=== PATIENT | female | born 1975 | race Caucasian/White ===

== ENCOUNTER → 2016-07-28 | Outpatient (CLI) | payer OTHER ==
[~2016-07-28] MED LIST: ACET-1311 PO; CHOL2000 PO; CLR10 PO; CPR500 PO; CPXI INJ; CYCL10TA6 PO; FING1CAP PO; HYDR-5688 PO; IBUP-1050 PO; IMT100 PO; MULT-506 PO; NAPR1TAB9 PO; OMEP20CA9 PO; OXYC-57 PO; RIZA10TA18 PO; TOPI50TA16 PO; TRAM-10 PO; VENL-273 PO
[2016-07-28 17:50] LABS: BASO % 0.7 %; BASO ABS # 0.08 K/uL (0-0.2); COMPLETE YES; EOS % 1.1 %; IG% 0.3 %; LYMPH % 18.4 %; LYMPH ABS # 2.13 K/uL (1.2-3.4); MEAN CELL VOLUME 90.3 fL (80-100); MEAN CORPUSCULAR HEMOGLOBIN 30.2 pg (25-34); MEAN CORPUSCULAR HGB CONC 33.4 g/dl (32-36); MONO % 12.1 %; NEUT % 67.4 %; PLATELET COUNT 336 K/uL (130-400); RED BLOOD COUNT 4.54 M/uL (4.2-5.4); WHITE BLOOD COUNT 11.59 K/uL (4.8-10.8)
[2016-07-28 18:09] LABS: ALT/SGPT 22 U/L (12-78); AST/SGOT 14 U/L (15-37); BLOOD UREA NITROGEN 10 mg/dl (7-18); BUN/CREATININE RATIO 12.4 (10-20); CALCIUM 8.5 mg/dl (8.5-10.1); CARBON DIOXIDE 28 mmol/L (21-32); CHLORIDE 104 mmol/L (98-107); CREATININE 0.84 mg/dl (0.60-1.20); GLUCOSE 88 mg/dl (70-99); POTASSIUM 4.1 mmol/L (3.5-5.1); SODIUM 140 mmol/L (136-145)
[2016-07-28 18:19] LABS: ALB/GLOB RATIO 1.1 (0.9-2); ALKALINE PHOSPHATASE 81 U/L (45-117); THYROID STIMULATING HORMONE 0.953 uIu/ml (0.300-4.500)
== END | disposition home or self-care (01) ==
LOC: C.LABPBG 15:35
PROVIDERS: ATTEND Psychiatry & Neurology Neurology
DX: G35 Multiple sclerosis (principal); E53.8 Deficiency of other specified B group vitamins; E55.9 Vitamin D deficiency, unspecified

== ENCOUNTER → 2016-08-15 | Outpatient (CLI) | payer OTHER ==
[~2016-08-15] MED LIST changes: +GADAVIST IV PRN
--- NOTE | 2016-08-15 11:29 | DIAGNOSTIC IMAGING REPORT ---
Brain MRI WITH AND WITHOUT CONTRAST HISTORY: Demyelinating disorder G35 Multiple [id number] TECHNIQUE: Multiplanar multisequence MRI of the brain was performed both before and after the intravenous administration of contrast. COMPARISON STUDY: 11/10/2014 FINDINGS: There are no areas of restricted diffusion to suggest acute infarction. The midline structures are intact. The paranasal sinuses are clear. The mastoid air cells are clear. The ventricles and sulci are within normal limits for age. There is no mass, hematoma, midline shift. The major vascular flow-voids at the skull base are well maintained. Postcontrast sequences show no areas of abnormal enhancement. Small foci of increased signal within the periventricular and optic radiation regions are stable. There has been no evidence for significant new interval or progressive process. IMPRESSION: 1. Findings consistent with stable demyelinating disorder. 2. No evidence for new interval or progressive process. 3. The periventricular and optic radiation foci of increased signal are stable Electronically signed by: Dilshad Fleming M.D. 08/15/2016 11:27 AM Dictated Date/Time: 08/15/2016 11:22 AM
--- NOTE | 2016-08-15 11:56 | DIAGNOSTIC IMAGING REPORT ---
MRI OF THE CERVICAL SPINE WITH AND WITHOUT CONTRAST CLINICAL HISTORY: Multiple sclerosis. COMPARISON: MRI of the cervical spine November 22, 2012. TECHNIQUE: Utilizing a 1.5 Abigail magnet and dedicated coil, multiplanar, multiecho imaging of the cervical spine was performed before and after intravenous administration of 8.5 of Gadavist. FINDINGS: Alignment of the cervical spine is anatomic. Vertebral body heights are maintained. There is no suspicious marrow replacement. A possible 4 mm focus of increased T2 signal within the left aspect of the cord at the C2 level is unchanged since MRI of November 22, 2012. No new areas of signal abnormality are present. There is no cord enhancement. Vertebral soft tissues are unremarkable. C2-C3: The central canal and the neural foramen are patent. C3-C4: The central canal and the neural foramen are patent. C4-C5: The central canal and the neural foramen are patent. C5-C6: A central disc protrusion results in mild narrowing of the central canal. There is moderate to severe narrowing of the left neural foramen. Findings are similar to study of November 22, 2012. C6-C7: Central canal and neural foramen are patent. C7-T1: Central canal and neural foramen are patent. IMPRESSION: 1. No change in the cervical cord since MRI of November 22, 2012. Possible small focus of signal abnormality at the C2 level is unchanged. No new foci signal abnormality. No evidence of active demyelination. 2. No change in mild multilevel degenerative changes of the cervical spine. Electronically signed by: Rm Hernandez M.D. 08/15/2016 11:55 AM Dictated Date/Time: 08/15/2016 11:31 AM
== END | disposition home or self-care (01) ==
LOC: C.MRIBC 09:01
PROVIDERS: ATTEND Physician Assistant
DX: G35 Multiple sclerosis (principal)

== ENCOUNTER → 2016-08-26 | Outpatient (CLI) | payer OTHER ==
[~2016-08-26] MED LIST changes: -GADAVIST IV PRN
[2016-08-28 18:32] LABS: VARICELLA ZOS VIR IGM AB <=0.90 (<=0.90)
[2016-08-30 20:05] LABS: JCV ANTIBODY NEGATIVE; JCV INDEX 0.08
== END | disposition home or self-care (01) ==
LOC: C.LABPBG 15:15
PROVIDERS: ATTEND Physician Assistant
DX: G35 Multiple sclerosis (principal)

== ENCOUNTER → 2016-12-08 | Outpatient (CLI) | payer OTHER | END | disposition home or self-care (01) | LOC: C.CPL 15:25 | PROVIDERS: ATTEND Physician Assistant | DX: G35 Multiple sclerosis (principal) ==

== ENCOUNTER 2017-01-18 11:38 | Emergency (ER) | payer OTHER ==
[~2017-01-18] VITALS: Ht 160 cm; Wt 91.2 kg
[~2017-01-18 11:38] MED LIST changes: -ACET-1311 PO; -CHOL2000 PO; -CLR10 PO; -CYCL10TA6 PO; -FING1CAP PO; -HYDR-5688 PO; -IBUP-1050 PO; -MULT-506 PO; -OXYC-57 PO; -RIZA10TA18 PO; -TOPI50TA16 PO; -TRAM-10 PO
[2017-01-18 11:42] VITALS: TEMP 36.6; Ht 160 cm; Wt 91.2 kg
[2017-01-18] MEDS ORDERED: ACETAMINOPHEN 500 MG TAB PO STA (12:12)
[2017-01-18] MEDS ORDERED: FING1CAP PO (12:27)
[2017-01-18 12:46] LABS: BASO % 0.6 %; BASO ABS # 0.03 K/uL (0-0.2); COMPLETE YES; EOS % 2.6 %; HEMATOCRIT 40.5 % (37-47); IG% 0.2 %; LYMPH % 10.5 %; LYMPH ABS # 0.49 K/uL (1.2-3.4); MEAN CELL VOLUME 90.2 fL (80-100); MEAN CORPUSCULAR HGB CONC 34.3 g/dl (32-36); MEAN PLATELET VOLUME 10.3 fL (7.4-10.4); MONO % 11.1 %; PLATELET COUNT 321 K/uL (130-400); RED BLOOD COUNT 4.49 M/uL (4.2-5.4); WHITE BLOOD COUNT 4.67 K/uL (4.8-10.8)
[2017-01-18 13:03] LABS: BUN/CREATININE RATIO 10.5 (10-20); CALCIUM 8.3 mg/dl (8.5-10.1); CREATININE 0.76 mg/dl (0.60-1.20); POTASSIUM 4.1 mmol/L (3.5-5.1)
[2017-01-18 13:11] LABS: PREG INTERNAL NEGATIVE QC NEG CLEAR BACKGROUND; PREG INTERNAL POSITIVE QC POS CONTROL LINE
--- NOTE | 2017-01-18 13:28 | DIAGNOSTIC IMAGING REPORT ---
MAXILLOFACIAL CT WITHOUT CONTRAST CLINICAL HISTORY: Left facial injury following fall. COMPARISON STUDY: Head CT October 17, 2012. TECHNIQUE: A maxillofacial CT was performed without IV contrast. Coronal and sagittal reformats were viewed. A dose lowering technique was utilized adhering to the principles of ALARA. FINDINGS: Note is made of a fracture of the left orbital floor which is displaced 5 mm. There is herniation of a small amount of orbital fat through the defect. Extraocular muscles do not extend through the defect. Globes are intact. There is no retrobulbar hematoma. No additional acute facial fractures are identified. Alignment of the temporomandibular joints is anatomic. There is minimal left infraorbital contusion. IMPRESSION: Acute moderately displaced left orbital floor fracture with protrusion of a small amount of orbital fat through the defect. No additional facial fractures. Globes intact with no retrobulbar hematoma. Electronically signed by: Rm Hernandez M.D. 01/18/2017 1:06 PM Dictated Date/Time: 01/18/2017 1:02 PM
--- NOTE | 2017-01-18 13:28 | DIAGNOSTIC IMAGING REPORT ---
CT OF THE HEAD WITHOUT CONTRAST CLINICAL HISTORY: Fall. Left facial injury. COMPARISON STUDY: MRI of the brain August 15, [address] November 16, 2012. TECHNIQUE: Helical axial images of the head were obtained without IV contrast. Automated exposure control was utilized for the study. A dose lowering technique was utilized adhering to the principles of ALARA. FINDINGS: No acute intracranial hemorrhage, midline shift or mass effect is present. Slight ventricular dilatation is unchanged. Basilar cisterns are patent. There are no extra axial collections. Borden-white differentiation is maintained. There are no findings to suggest acute dural sinus thrombosis or acute territorial infarct. There is no calvarial fracture. Facial bones are better depicted on the maxillofacial CT. IMPRESSION: 1. No acute intracranial findings. 2. No calvarial fracture. Electronically signed by: Rm Hernandez M.D. 01/18/2017 1:02 PM Dictated Date/Time: 01/18/2017 12:58 PM
[2017-01-18 14:47] VITALS: BP 134/96; PULSE 85; O2SAT 97
[2017-01-18] MEDS ORDERED: HYDR-5688 PO (15:10)
--- NOTE | 2017-01-18 15:11 | EMERGENCY ROOM VISIT NOTE ---
History First contact with patient: 11:51 Chief Complaint: FALL Stated Complaint: FELL, NUMBNESS IN FACE History of Present Illness The patient is a 41 year old female who presents to the Emergency Room with complaints of left-sided facial pain following a fall. The patient states that she fell 2 days ago. She was getting up to go to the bathroom at 4 AM and became very lightheaded. She states that she "blacked out." This has happened to her before and she states that she had extensive workup and was told it was due to a low blood pressure. She states that there is numbness in the left side of her face. She has some burning in the left eye and a headache. She rates her discomfort a 6/10. She is taking ibuprofen at home for the pain. She denies any nausea/vomiting, numbness/weakness of her extremities, or neck pain. She denies any other injuries. Review of Systems A complete 10 point review of systems was reviewed with the patient with pertinent positives and negatives as per history of present illness. All else were negative. Past Medical/Surgical History Medical Problems: (1) Chest pain (2) GERD (gastroesophageal reflux disease) (3) Hiatal hernia (4) History of asthma (5) Migraines (6) Multiple sclerosis (7) Optic neuritis (8) PUD (peptic ulcer disease) (9) SIRS (systemic inflammatory response syndrome) Surgical Problems: (1) H/O section (2) H/O dilation and curettage (3) History of (4) S/P laparoscopic cholecystectomy (5) S/P tonsillectomy Family History Diabetes mellitus SON FH: CAD (coronary artery disease) FATHER (multiple CA, onset in 30s) Hypertension FATHER Social History Smoking Status: Never Smoker Alcohol Use: occasionally Marital Status: Housing Status: lives with family Current/Historical Medications Scheduled Fingolimod Hcl (Gilenya), 0.5 MG PO DAILY Omeprazole (Prilosec), 20 MG PO BID Venlafaxine Hcl (Venlafaxine Hcl Er), 225 MG PO HS Scheduled PRN Hydrocodone/Acetaminophen 5MG/325MG ([place]ford 5MG/325MG), 1-2 TABLET PO Q4H PRN for Pain Sumatriptan Succinate (Imitrex), 100 MG PO UD PRN for Migraine Physical Exam Vital Signs Date Time Temp Pulse Resp B/P (MAP) Pulse Ox O2 Delivery O2 Flow Rate FiO2 01/18/17 14:47 85 18 134/96 97 Room Air 01/18/17 12:47 89 18 122/75 95 Room Air 93 133/90 98 121/91 01/18/17 11:42 36.6 105 20 142/98 98 Room Air Physical Exam VITALS: Vitals are noted on the nurse's note and reviewed by myself. Vital signs stable. GENERAL: This is a 41-year-old female, in no acute distress, nondiaphoretic, well-developed well-nourished. HEAD: Normocephalic atraumatic. EARS: External auditory canals clear, tympanic membranes pearly borden without erythema or effusion bilaterally. No hemotympanum. EYES: There is mild infraorbital edema and ecchymosis. Pupils equal round and reactive to light and accommodation. Conjunctivae without injection, sclerae without icterus. Extraocular movements intact. NOSE: No deformities. Nontender. MOUTH: Mucous membranes moist. NECK: Supple without nuchal rigidity. Cervical spine is nontender. HEART: Regular rate and rhythm without murmurs gallops or rubs. LUNGS: Clear to auscultation bilaterally without wheezes, rales or rhonchi. MUSCULOSKELETAL: Strength 5/5 throughout. NEURO: Patient was alert and oriented to person place and time. Normal sensation to light and sharp touch. Medical Decision & Procedures ER Provider Diagnostic Interpretation: CT OF THE HEAD WITHOUT CONTRAST FINDINGS: No acute intracranial hemorrhage, midline shift or mass effect is present. Slight ventricular dilatation is unchanged. Basilar cisterns are patent. There are no extra axial collections. Borden-white differentiation is maintained. There are no findings to suggest acute dural sinus thrombosis or acute territorial infarct. There is no calvarial fracture. Facial bones are better depicted on the maxillofacial CT. IMPRESSION: 1. No acute intracranial findings. 2. No calvarial fracture. MAXILLOFACIAL CT WITHOUT CONTRAST FINDINGS: Note is made of a fracture of the left orbital floor which is displaced 5 mm. There is herniation of a small amount of orbital fat through the defect. Extraocular muscles do not extend through the defect. Globes are intact. There is no retrobulbar hematoma. No additional acute facial fractures are identified. Alignment of the temporomandibular joints is anatomic. There is minimal left infraorbital contusion. IMPRESSION: Acute moderately displaced left orbital floor fracture with protrusion of a small amount of orbital fat through the defect. No additional facial fractures. Globes intact with no retrobulbar hematoma. Laboratory Results 01/18/17 12:30 Red Blood Count 4.49, Mean Corpuscular Volume 90.2, Mean Corpuscular Hemoglobin 31.0, Mean Corpuscular Hemoglobin Concent 34.3, Mean Platelet Volume 10.3, Neutrophils (%) (Auto) 75.0, Lymphocytes (%) (Auto) 10.5, Monocytes (%) (Auto) 11.1, Eosinophils (%) (Auto) 2.6, Basophils (%) (Auto) 0.6, Neutrophils # (Auto ) 3.50, Lymphocytes # (Auto) 0.49, Monocytes # (Auto) 0.52, Eosinophils # (Auto ) 0.12, Basophils # (Auto) 0.03 01/18/17 12:30 Test 01/18/17 12:30 White Blood Count 4.67 K/uL (4.8-10.8) Red Blood Count 4.49 M/uL (4.2-5.4) Hemoglobin 13.9 g/dL (12.0-16.0) Hematocrit 40.5 % (37-47) Mean Corpuscular Volume 90.2 fL (80-100) Mean Corpuscular Hemoglobin 31.0 pg (25-34) Mean Corpuscular Hemoglobin Concent 34.3 g/dl (32-36) Platelet Count 321 K/uL (130-400) Mean Platelet Volume 10.3 fL (7.4-10.4) Neutrophils (%) (Auto) 75.0 % Lymphocytes (%) (Auto) 10.5 % Monocytes (%) (Auto) 11.1 % Eosinophils (%) (Auto) 2.6 % Basophils (%) (Auto) 0.6 % Neutrophils # (Auto) 3.50 K/uL (1.4-6.5) Lymphocytes # (Auto) 0.49 K/uL (1.2-3.4) Monocytes # (Auto) 0.52 K/uL (0.11-0.59) Eosinophils # (Auto) 0.12 K/uL (0-0.5) Basophils # (Auto) 0.03 K/uL (0-0.2) RDW Standard Deviation 46.0 fL (36.4-46.3) RDW Coefficient of Variation 13.9 % (11.5-14.5) Immature Granulocyte % (Auto) 0.2 % Immature Granulocyte # (Auto) 0.01 K/uL (0.00-0.02) Anion Gap 6.0 mmol/L (3-11) Est Creatinine Clear Calc Drug Dose 104.4 ml/min Estimated GFR () 112.9 Estimated GFR (Non- 97.4 BUN/Creatinine Ratio 10.5 (10-20) Calcium Level 8.3 mg/dl (8.5-10.1) Magnesium Level 2.0 mg/dl (1.8-2.4) Human Chorionic Gonadotropin, Qual NEG (NEG) Medications Administered Medications (Trade) Dose Ordered Sig/Andrzej Route Start Time Stop Time Status Last Admin Dose Admin Acetaminophen (Tylenol Tab) 1,000 mg NOW STAT PO 01/18/17 12:12 01/18/17 12:14 DC 01/18/17 12:12 1,000 MG ECG Indication: syncope Rate (beats per minute): 87 Rhythm: normal sinus Findings: no acute ischemic change, no ectopy Change: no significant change ED Course The patient was evaluated as above. Labs were drawn and IV access was obtained. Patient was medicated with 1 g Tylenol. Case was discussed with Dr. Jiménez of ophthalmology. He recommended having the patient call Thursday to schedule an exam that day. Case was discussed with Dr. Cortez, plastic surgery. She also recommended the patient follow-up in the office on Thursday. Patient was reevaluated and findings were discussed. Discharge instructions were reviewed with the patient. The patient verbalized understanding of my assessment and treatment plan and was discharged home in good condition. Medical Decision Differential diagnosis includes cardiac syncope, orthostatic hypotension, vasovagal syncope, facial bone fracture, intracranial hemorrhage, contusion, among others. The patient is a 41-year-old female who presents today complaining of left facial pain following a fall. Further workup was performed due to the patient' s history of syncope. Labs were unremarkable. Orthostatic vital signs were negative. EKG was unremarkable with no evidence of ectopy. The patient does admit to syncopal episodes in the past and has had extensive workup performed for this. Her symptoms were likely due to orthostatic hypotension, as this occurred first thing in the morning. CT of the head and facial bones were performed and did show a displaced left orbital floor fracture. Case was discussed with both ophthalmology and plastic surgery, who will follow-up with the patient in office. She is given a prescription for a short course of pain medication. Based on the patient's presentation and work up, I feel the patient is stable for outpatient treatment. The patient was educated to return to the emergency department for any worsening of their current condition or new/concerning symptoms. She will follow up with ophthalmology, plastic surgery and her PCP. The patient's case was reviewed with Dr. Burch, ED attending physician, who agreed with my assessment and treatment plan. [place] Drug Monitoring Program Search Results: patient reviewed within database Head Trauma GCS Score: 15 Medication Reconcilliation Current Medication List: was personally reviewed by me Blood Pressure Screening Patient's blood pressure: Elevated blood pressure Blood pressure disposition: Elevated BP felt to be situational Impression Primary Impression: Orbital floor fracture Additional Impressions: Syncope Fall Departure Information Dispostion Home / Self-Care Condition GOOD Prescriptions Hydrocodone/Acetaminophen 5MG/325MG ([place] 5MG/325MG) Tab 1-2 TABLET PO Q4H Y for Pain, #15 TAB For Initial Treatment Prov: Sandra Cardenas ., KALIE 01/18/17 Referrals Blanca Hale D.O. (PCP) Patient Instructions My [facility] Additional Instructions You have been prescribed Bradford to be used for pain control. Take 1-2 tablets every 4-6 hours as needed for pain. This is a narcotic medication. You cannot drive or consume alcohol while on this medicine. This medicine should only be used for pain that cannot be controlled with [id number] pain medicines. For pain control, you can use the following byaa-[id number]-[id number] medicines (if >12 yo): - Regular strength (325mg/tab) Tylenol (acetaminophen) 2 tabs every 4-6 hours as needed. Do not exceed 12 tablets in a 24 hour period. Avoid taking more than 4 grams (4000 mg) of Tylenol per day. This includes any other sources of acetaminophen you may take on a regular basis. - Regular strength (200 mg/tab) Advil (ibuprofen) 1-2 tabs every 4-6 hours as needed. Do not exceed a dose of [address] Dr. Jiménez and Dr. Cortez on Thursday to schedule follow-up appointment that day. Follow up with Dr. Hale this week. Return here for any worsening or new/concerning symptoms or difficulty moving the eye/vision changes. Problem Qualifiers Primary Impression: Orbital floor fracture Encounter type: initial encounter Fracture type: closed Laterality: left Qualified Codes: S02.32XA - Fracture of orbital floor, left side, initial encounter for closed fracture Additional Impressions: Syncope Syncope type: unspecified Qualified Codes: R55 - Syncope and collapse Fall Encounter type: initial encounter Qualified Codes: W19.XXXA - Unspecified fall, initial encounter
[2017-01-29] MEDS ORDERED: TOPI50TA16 PO (10:17)
[2017-01-29] MEDS ORDERED: TRAM-10 PO (10:17)
[2017-01-29] MEDS ORDERED: RIZA10TA18 PO (10:17)
[2017-01-29] MEDS ORDERED: MULT-506 PO (10:17)
[2017-01-29] MEDS ORDERED: CYCL10TA6 PO (10:17)
[2017-01-29] MEDS ORDERED: CHOL2000 PO (10:17)
[2017-01-29] MEDS ORDERED: IBUP-1050 PO (10:20)
[2017-01-29] MEDS ORDERED: OXYC-57 PO (10:20)
[2017-01-29] MEDS ORDERED: CLR10 PO (10:20)
[2017-01-29] MEDS ORDERED: HYDR-5688 PO (10:20)
[2017-01-29] MEDS ORDERED: ACET-1311 PO (10:20)
== END 2017-01-18 15:17 | disposition home or self-care (01) ==
LOC: C.EDB 11:40 → C.EDC 15:17
DX: S02.32XA Fracture of orbital floor, left side, initial encounter for closed fracture (principal); W19.XXXA Unspecified fall, initial encounter; I95.1 Orthostatic hypotension; K21.9 Gastro-esophageal reflux disease without esophagitis; J45.909 Unspecified asthma, uncomplicated; G35 Multiple sclerosis; H46.9 Unspecified optic neuritis; K27.9 Peptic ulcer, site unspecified, unspecified as acute or chronic, without hemorrhage or perforation; Z90.49 Acquired absence of other specified parts of digestive tract; Z83.3 Family history of diabetes mellitus; Z82.49 Family history of ischemic heart disease and other diseases of the circulatory system; Z79.899 Other long term (current) drug therapy

== ENCOUNTER 2017-02-02 05:43 | Observation (INO) | payer OTHER ==
[2017-01-29 10:21] VITALS: BMI 36.0
--- NOTE | 2017-01-29 10:47 | PAT Medication Instructions ---
Service Date Jan 29, 2017. Current Home Medication List Acetaminophen (Tylenol), 650 MG PO PRN Cholecalciferol (Vitamin D3), 1 CAP PO QAM Cyclobenzaprine Hcl (Flexeril), 10 MG PO TID PRN for PRN Fingolimod Hcl (Gilenya), 0.5 MG PO QPM Hydrocodone/Acetaminophen 5MG/325MG ([place] 5MG/325MG), 1-2 TABLET PO Q4H PRN for N Ibuprofen (Advil), 400-600 MG PO Q4H PRN for PRN Loratadine (Claritin), 10 MG PO QAM Multivitamin (Multivitamin), 1 TAB PO QAM Omeprazole (Prilosec), 40 MG PO BID Oxycodone/Acetaminophen 5MG/325MG (Percocet 5MG/325MG), 1 TABLET PO Q4H PRN for Pain Rizatriptan Benzoate (Maxalt), 10 MG PO UD PRN for RN Topiramate (Topamax), 50 MG PO QPM Tramadol (Ultram), 50 MG PO BID PRN for RN Venlafaxine Hcl (Venlafaxine Hcl Er), 225 MG PO HS Medication Instructions For Your Scheduled Surgery - Hold the following medications the morning of surgery: Cholecalciferol (Vitamin D3), 1 CAP PO QAM Cyclobenzaprine Hcl (Flexeril), 10 MG PO TID PRN for PRN Ibuprofen (Advil), 400-600 MG PO Q4H PRN for PRN Loratadine (Claritin), 10 MG PO QAM Multivitamin (Multivitamin), 1 TAB PO QAM - Take the following medications the morning of surgery with a sip of water: Tramadol (Ultram), 50 MG PO BID PRN for RN (okay to take up to 4 hours prior to surgery if needed) Oxycodone/Acetaminophen 5MG/325MG (Percocet 5MG/325MG), 1 TABLET PO Q4H PRN for Pain (okay to take up to 4 hours prior to surgery if needed) Hydrocodone/Acetaminophen 5MG/325MG ([place] 5MG/325MG), 1-2 TABLET PO Q4H PRN for N (okay to take up to 4 hours prior to surgery if needed) Rizatriptan Benzoate (Maxalt), 10 MG PO UD PRN for RN (if needed) Omeprazole (Prilosec), 40 MG PO BID Acetaminophen (Tylenol), 650 MG PO PRN (if needed) - Take the following medications as scheduled the night before surgery: Venlafaxine Hcl (Venlafaxine Hcl Er), 225 MG PO HS Tramadol (Ultram), 50 MG PO BID PRN for RN (if needed) Oxycodone/Acetaminophen 5MG/325MG (Percocet 5MG/325MG), 1 TABLET PO Q4H PRN for Pain (if needed) Rizatriptan Benzoate (Maxalt), 10 MG PO UD PRN for RN (if needed) Topiramate (Topamax), 50 MG PO QPM Omeprazole (Prilosec), 40 MG PO BID Cyclobenzaprine Hcl (Flexeril), 10 MG PO TID PRN for PRN (if needed) Acetaminophen (Tylenol), 650 MG PO PRN (if needed) Fingolimod Hcl (Gilenya), 0.5 MG PO QPM If you have any questions please call us at [phone] or [phone] or [phone]
[2017-01-29 11:32] LABS: INR 0.9 (0.9-1.1); PARTIAL THROMBOPLASTIN RATIO 1.1; PROTHROMBIN TIME (PATIENT) 9.4 SECONDS (9.0-12.0)
[2017-02-02] VITALS (10 sets, daily range): BP systolic 113–143; BP diastolic 74–91; PULSE 91–118; TEMP 36.6–37.2; O2SAT 94–99; Ht 160 cm; Wt 92.9 kg
[~2017-02-02] VITALS: Ht 160 cm; Wt 92.9 kg
[~2017-02-02 05:43] MED LIST changes: +ACET-1311 PO; +CHOL2000 PO; +CLR10 PO; -CPR500 PO; -CPXI INJ; +CYCL10TA6 PO; +FING1CAP PO; +HYDR-5688 PO; +IBUP-1050 PO; -IMT100 PO; +MULT-506 PO; -NAPR1TAB9 PO; +OXYC-57 PO; +RIZA10TA18 PO; +TOPI50TA16 PO; +TRAM-10 PO
[2017-02-02] MEDS ORDERED: CEFAZOLIN 2000 MG/60 ML D5W IV SCH (06:00)
[2017-02-02] MEDS ORDERED: LACTATED RINGER'S 1000ML 1,000 ML IV SCH (06:00)
[2017-02-02 06:35] LABS: PREG INTERNAL NEGATIVE QC NEG CLEAR BACKGROUND; PREG INTERNAL POSITIVE QC POS CONTROL LINE
--- NOTE | 2017-02-02 06:46 | History & Physical Bridge Note ---
H&P Re-Evaluation Bridge Note: I have examined the patient, reviewed the History & Physical and in the interval since the performance of the History & Physical I have noted the following changes of clinical significance: No changes noted
[2017-02-02] MEDS ORDERED: MIDAZOLAM HCL 1 MG/ML 2ML VIAL ONE (06:55)
[2017-02-02] MEDS ORDERED: NEOSTIGMINE METHYLSULFATE 5 MG/5 ML SYR ONE (06:55)
[2017-02-02] MEDS ORDERED: FENTANYL CITRATE INJ 50 MCG/1 ML 2 ML VIAL ONE ×2 (06:55)
[2017-02-02] MEDS ORDERED: PROPOFOL IV EMULSION 10 MG/ML 20 ML VIAL IV ONE (06:55)
[2017-02-02] MEDS ORDERED: ROCURONIUM BROMIDE 10 MG/ML 5 ML VIAL IV ONE ×2 (06:55→10:08)
[2017-02-02] MEDS ORDERED: ONDANSETRON INJ 2 MG/ML 2 ML VIAL ONE ×2 (06:55→09:39)
[2017-02-02] MEDS ORDERED: GLYCOPYRROLATE INJ 0.2 MG/ML VIAL ONE (06:55)
[2017-02-02] MEDS ORDERED: LIDOCAINE HCL 2% 2 ML VIAL (20MG/ML) ONE (06:55)
[2017-02-02] MEDS ORDERED: DEXAMETHASONE SOD INJ 4 MG/ML VIAL ONE (06:55)
[2017-02-02] MEDS ORDERED: LIDOCAINE/EPINEPHRINE 1% 20 ML VIAL ONE (07:08)
[2017-02-02] MEDS ORDERED: ACETAMINOPHEN 1000 MG/100 ML IV IV ONE (07:15)
[2017-02-02] MEDS ORDERED: BACITRACIN OINT 15 GM TUBE ONE (07:17)
[2017-02-02] MEDS ORDERED: POVIDONE-IODINE OP SOLN 30 ML BTL ONE ×2 (07:33→07:46)
[2017-02-02] MEDS ORDERED: GENTIAN VIOLET TOP SOLN 60 APPLN/59 ML BTL ONE (07:37)
[2017-02-02] MEDS ORDERED: HYDROmorphone INJ 2 MG/ML SYR/VIAL ONE (07:38)
[2017-02-02] MEDS ORDERED: SODIUM CHLORIDE 0.9% INJ 10 ML VIAL ONE (07:50)
[2017-02-02] MEDS ORDERED: LARYING-O-JET KIT (LTA) ONE ×2 (07:50)
[2017-02-02] MEDS ORDERED: ARTIFICIAL TEARS OP OINT 3.5 GM TUBE ONE (07:50)
[2017-02-02] MEDS ORDERED: ATROPINE SULFATE 0.1 MG/ML 5ML SYR IV PRN (08:00)
[2017-02-02] MEDS ORDERED: EpHEDrine SULFATE INJ 50 MG/ML AMP IV PRN (08:00)
[2017-02-02] MEDS ORDERED: ONDANSETRON INJ 2 MG/ML 2 ML VIAL IV PRN ×2 (08:00→09:45)
[2017-02-02] MEDS ORDERED: PHENYLEPHRINE 100MCG/ML 5ML SYR ONE (08:12)
[2017-02-02] MEDS ORDERED: ESMOLOL HCL 10 MG/ML 10 ML VIAL ONE (09:06)
[2017-02-02] MEDS ORDERED: STERILE IRRIGATING SOLUTION (BSS) 15ML ONE (09:37)
--- NOTE | 2017-02-02 09:41 | [facility] Post Operative Brief Note ---
Immediate Operative Summary Operative Date Feb 02, 2017. Pre-Operative Diagnosis Orbital floor fracture Post-Operative Diagnosis same as preop Procedure(s) Performed Repair Left Orbital Floor Fracture Surgeon Dr. Shannon Cortez Shelter Director Surgeon(s) none Estimated Blood Loss 5 ml Findings about 2 cm defect in orbital floor, significant amount of fat herniated into fracture site, forced duction at close of case showed no entrapment Specimens none Anesthesia general Complication(s) None Disposition Recovery Room / PACU
[2017-02-02] MEDS ORDERED: STERILE IRRIGATING SOLUTION (BSS) 15ML OP PRN (09:45)
[2017-02-02] MEDS ORDERED: PROMETHAZINE HCL INJ 12.5 MG in SODIUM CHLORIDE 0.9% 50ML 50 ML IV PRN (09:45)
[2017-02-02] MEDS ORDERED: BACITRACIN OP OINT 3.5 GM TUBE TOP ONE (09:45)
[2017-02-02] MEDS ORDERED: MoRPHine SULFATE 4 MG/ML 1 ML CARP\\VIAL IV PRN ×2 (09:45)
[2017-02-02] MEDS ORDERED: ACETAMINOPHEN 325 MG TAB PO PRN (09:45)
[2017-02-02] MEDS ORDERED: CYCLOBENZAPRINE HCL 10 MG TAB PO PRN (09:45)
[2017-02-02] MEDS ORDERED: RIZATRIPTAN BENZOATE 10 MG TAB PO PRN (09:45)
[2017-02-02] MEDS ORDERED: OXYCODONE/ACETAMINOPHEN 5-325 TAB PO PRN (09:45)
[2017-02-02] MEDS ORDERED: DiphenhydrAMINE HCL 50 MG/ML VIAL IV PRN (09:45)
[2017-02-02] MEDS ORDERED: MoRPHine SULFATE 2 MG/ML CARP IV PRN (09:45)
[2017-02-02] MEDS ORDERED: TRAMADOL HCL 50 MG TAB PO PRN (09:45)
[2017-02-02] MEDS: FENTANYL CITRATE INJ 50 MCG/1 ML 2 ML VIAL IV PRN ×4 (10:17→10:35)
[2017-02-02] MEDS ORDERED: IV FLUIDS COMPLETED PRN (10:30)
--- NOTE | 2017-02-02 10:39 | Progress Note ---
Progress Note Date of Service Feb 02, 2017. Progress Note Post op check-seen in PACU. Patient reports vision in both eyes pain controlled afebrile VSS PERRL, EOMI bilaterally incision intact with scant drainage and edema/ecchymosis Doing well post op plan for observation to monitor for s/s bleeding or vision loss
[2017-02-02] MEDS: MoRPHine SULFATE 10 MG/ML CARP/VIAL IV PRN ×3 (10:40→10:53)
--- NOTE | 2017-02-02 11:36 | Anesthesiology Progress Note ---
Anesthesia Post Op Note Date & Time Feb 02, 2017 at 11:36 Vital Signs Pain Intensity: 2 Vital Signs Past 12 Hours Date Time Temp Pulse Resp B/P (MAP) Pulse Ox O2 Delivery O2 Flow Rate FiO2 02/02/17 11:20 36.6 110 12 110/79 93 Nasal Cannula 4 02/02/17 11:10 120 13 125/75 94 Nasal Cannula 4 02/02/17 11:00 112 10 120/78 93 Nasal Cannula 4 02/02/17 10:50 114 12 115/93 92 Nasal Cannula 4 02/02/17 10:40 123 18 119/68 92 Nasal Cannula 4 02/02/17 10:30 113 22 128/78 94 Oxymask 15 02/02/17 10:20 115 17 119/82 94 Oxymask 15 02/02/17 10:10 113 16 134/81 93 Oxymask 15 02/02/17 10:00 37.0 118 16 123/80 95 Oxymask 15 02/02/17 06:06 37.2 91 18 113/85 (94) 97 Room Air Notes Mental Status: alert / awake / arousable, participated in evaluation Pt Amnestic to Procedure: Yes Nausea / Vomiting: adequately controlled Pain: adequately controlled Airway Patency, RR, SpO2: stable & adequate BP & HR: stable & adequate Hydration State: stable & adequate Anesthetic Complications: no major complications apparent
--- NOTE | 2017-02-02 12:39 | OPERATIVE REPORT ---
DATE OF OPERATION: 02/02/2017 PREOPERATIVE DIAGNOSIS: Left orbital floor fracture. POSTOPERATIVE DIAGNOSIS: Same. PROCEDURE: Repair of left orbital floor fracture with canthopexy. SURGEON: Dr. Shannon Cortez. DAMAGED FREIGHT INSPECTOR: WIN Whitney. ANESTHESIA: General. COMPLICATIONS: None. INDICATION FOR THE PROCEDURE: The patient is a 41-year-old female who was referred to me by the Emergency Department after sustaining a fall, which resulted in an orbital floor fracture. She sought delayed treatment for this, presenting to the Emergency Department approximately 2 days after the injury. She was noted to have a fairly significant approximately 2-cm defect in the orbital floor and with 5 mm of depression and was referred to me for further management. Of note, the patient has a history of MS, has had visual disturbances in both eyes, which were presently stable. She was seen by me in followup again about 10 days post-injury and was noted to have early findings of enophthalmos. We discussed observation versus attempted repair, and due to the large size of the defect, fat herniation into the defect and some early findings of enophthalmos, I felt repair was indicated. BRIEF DESCRIPTION OF THE PROCEDURE: The risks, benefits and alternatives of the procedure were explained to the patient, who agreed and signed consent. She was identified and marked in the preoperative holding area. She was brought to the operating room, where she was positioned supine and placed under anesthesia without incident. Surgical site was prepped and draped sterilely. Gentian jessica was used to taina a mid lid incision about 5 mm below the ciliary margin, extending into the lateral canthal area. Corneal protector was placed. 1% lidocaine with epinephrine was used to anesthetize the planned incision as well as the lower lid down to the orbital rim. A 15 blade scalpel was used to make the incision. Incision was deepened using electrocautery. I first elevated a small skin flap and then transitioned to a skin muscle flap leaving some of the orbicularis musculature along the tarsal plate. The skin muscle flap was raised down to the orbital rim. Once the orbital rim was identified, periosteum was incised using electrocautery. A freer elevator was used to elevate the periosteum off of the orbital floor. Fracture site was exposed and noted to be about 1.5 x 1.5 cm. I was able to elevate periosteum surrounding the fracture and gently tease the herniated fat out of the fracture site. There was actually a substantial amount of fat, which had begun to herniate. No evidence of herniation of rectus musculature. Laterally, the fracture site did involve the infraorbital nerve and artery, which were visualized. Care was taken not to disrupt them. Once I was able to adequately elevate the orbital contents out of the fracture site and there was reasonable hemostasis, I selected a titanium plate, which was the 0.2-mm plate. It was trimmed to fit the defect with some overlap. Once I was satisfied with this, it was placed along the orbital floor, covering all aspects, anterior, medial, lateral and posterior aspects of the fracture. The posterior aspect of the fracture was about 3 cm behind the orbital rim. The plate was molded into place along the orbital floor and then three 4-mm screws were used to screw the small tabs anteriorly along the orbital rim. At this point, orbital contents were released and the periosteum was reapproximated using a 5-0 PDS interrupted sutures. Soft tissue was suspended along the orbital rim using a 5-0 PDS suture. A lateral canthopexy was performed using 5-0 PDS suture to take a bite of the periosteum and come around the lateral canthal tendon, which was then used to suspend the soft tissue. The incision was closed using 6-0 nylon interrupted sutures. Following the closure of the wound, the corneal protector was removed and forced duction testing was performed showing mobility of the inferior rectus muscle. Bacitracin ophthalmic ointment was applied. The patient was awakened and transferred to recovery in satisfactory condition. I attest to the content of the Intraoperative Record and any orders documented therein. Any exception s are noted below.
[2017-02-02] MEDS: BACITRACIN OP OINT 3.5 GM TUBE OP SCH ×3 (13:11→21:34)
[2017-02-02] MEDS: OXYCODONE/ACETAMINOPHEN 5-325 TAB PO PRN ×3 (13:13→21:30)
[2017-02-02] MEDS: D5W AND 1/2NSS + 20MEQ KCL 1,000 ML IV SCH ×2 (13:46→21:26)
[2017-02-02] MEDS: CEFAZOLIN IV 2,000 MG in DEXTROSE 5% 50ML 50 ML IV SCH (17:00)
[2017-02-02] MEDS ORDERED: TOPIRAMATE 50 MG TAB PO SCH (21:00)
[2017-02-02] MEDS ORDERED: FINGOLIMOD HCL 0.5 MG PO SCH (21:00)
[2017-02-02] MEDS ORDERED: VENLAFAXINE HCL XR 75 MG CAPXR PO SCH (21:00)
[2017-02-02] MEDS: PANTOprazole SOD 40 MG TAB PO SCH (21:28)
[2017-02-03] MEDS: CEFAZOLIN IV 2,000 MG in DEXTROSE 5% 50ML 50 ML IV SCH (01:55)
[2017-02-03] MEDS: BACITRACIN OP OINT 3.5 GM TUBE OP SCH ×3 (01:57→08:08)
[2017-02-03 03:18] VITALS: BP 118/78; PULSE 103; TEMP 36.7; O2SAT 97
[2017-02-03] MEDS: PANTOprazole SOD 40 MG TAB PO SCH (03:26)
[2017-02-03] MEDS: OXYCODONE/ACETAMINOPHEN 5-325 TAB PO PRN ×2 (03:27→10:36)
[2017-02-03] MEDS: D5W AND 1/2NSS + 20MEQ KCL 1,000 ML IV SCH (04:57)
[2017-02-03 07:05] VITALS: BP 109/71; PULSE 86; TEMP 36.7; O2SAT 95
[2017-02-03] MEDS ORDERED: MULTIVITAMIN TAB PO SCH (09:00)
[2017-02-03] MEDS ORDERED: LORATADINE 10 MG TAB PO SCH (09:00)
[2017-02-03] MEDS ORDERED: CHOLECALCIFEROL 1000 INTER.UNIT TAB PO SCH (09:00)
--- NOTE | 2017-02-03 09:11 | Anesthesiology Progress Note ---
Anesthesia Post Op Note Date & Time Feb 03, 2017 at 09:10 Vital Signs Pain Intensity: 5.0 Vital Signs Past 12 Hours Date Time Temp Pulse Resp B/P (MAP) Pulse Ox O2 Delivery O2 Flow Rate FiO2 02/03/17 07:05 36.7 86 18 109/71 (84) 95 Room Air 02/03/17 03:18 36.7 103 17 118/78 (91) 97 Room Air 02/02/17 23:45 Room Air 02/02/17 22:39 36.7 107 18 143/89 (107) 97 Room Air 02/02/17 21:30 98 Notes Mental Status: alert / awake / arousable, participated in evaluation Pt Amnestic to Procedure: Yes Nausea / Vomiting: adequately controlled Pain: adequately controlled Airway Patency, RR, SpO2: stable & adequate BP & HR: stable & adequate Hydration State: stable & adequate Anesthetic Complications: no major complications apparent
--- NOTE | 2017-02-03 10:02 | Progress Note ---
Progress Note Date of Service Feb 03, 2017. Progress Note POD #1 s/p repair left orbital floor fracture Doing well. Pain controlled. Vision intact. afebrile VSS incision intact left lower eyelid no chemosis, no ectropion PERRL, EOMI bilaterally Will discharge home today. Follow up appt 02/09 at 10:50 am in office. Instructions given Pain meds, abx provided in office preop
--- NOTE | 2017-02-03 10:06 | Discharge Instructions ---
Discharge Instructions Date of Service Feb 03, 2017. Admission Reason for Admission: Left Orbital Floor Fracture Discharge Discharge Diagnosis / Problem: left orbital floor fracture Discharge Goals Goal(s): Decrease discomfort, Improve function Activity Recommendations Activity Limitations: per Instructions/Follow-up section . Instructions / Follow-Up Instructions / Follow-Up ACTIVITY RECOMMENDATIONS: __Normal activities _x_No bending, lifting or straining __No driving _x_Driving allowed when you are off pain medications __Walking permitted __You should have help at home for ___ days DRESSINGS: _x_No dressings required __Keep dressings dry/in place until first office visit __Remove dressings ___ and leave dressings off _x_Apply ice _2_ days __Remove dressings and reapply garment _x_Apply antibiotic ointment ( prescribed in office) to wounds 3-4 times/day for 10 days BATHING: __Keep dressings dry __Sponge bathing permitted _x_Showering permitted tomorrow _x_No swimming, hot tubs or soaking in a tub MEDICATIONS: Resume previous medications unless instructed otherwise by your surgeon. _x_Do not use aspirin, Motrin, Advil or Ibuprofen as these may promote bleeding. Please use Tylenol. _x_Prescription(s) provided: antibiotics, pain meds, antibiotic ointment as prescribed in office OTHER INSTRUCTIONS: __Record drain output 2-3 times per day SPECIAL CARE INSTRUCTIONS: * It is normal to have a mild fever after surgery. If your temperature is higher than 101.5 degrees F, please call the office at [phone]. * Constipation is a typical side effect of pain medication. An over-the- counter stool softener will help relieve this. * Leaking around surgical drains may occur and should not cause concern. Sometimes these drains become clogged. If this happens, remove the bulb and milk the clot out of the tube, then replace the bulb. * Drainage from wounds after liposuction is normal and should be expected. Garments will become soiled. You should protect furniture and bedding. This drainage should mostly subside within 2-3 days. Leave garments in place unless instructed to remove them. * If you have unusual drainage from a wound or are concerned you have an infection or have any questions or concerns, please call the office at [phone]. FOLLOW UP VISIT: If not already scheduled, please call the office, , when you return home after surgery to schedule an appointment to be seen in _6__ days. Current Hospital Diet Patient's current hospital diet: Regular Diet Discharge Diet Recommended Diet: Regular Diet Procedures Procedures Performed: Repair Left Orbital Floor Fracture Pending Studies Studies pending at discharge: no Medical Emergencies . Who to Call and When: Medical Emergencies: If at any time you feel your situation is an emergency, please call 911 immediately. . Non-Emergent Contact Non-Emergency issues call your: Primary Care Provider, Neurologist, Surgeon Call Non-Emergent contact if: temperature is above 101.5, your pain is not controlled, wound has increased drainage . "Provider Documentation" section prepared by Shannon Cortez. . VTE Core Measure Inpt VTE Proph given/why not?: SCD's [place] Drug Monitoring Program Search Results: patient reviewed within database, no issues identified (pain meds written in office)
[2017-02-03 10:14] VITALS: BP 109/71; PULSE 86; TEMP 36.7; O2SAT 95
--- NOTE | 2017-02-04 03:49 | DISCHARGE SUMMARY ---
ADMISSION DIAGNOSIS: Left orbital floor fracture. SECONDARY DIAGNOSES: Include multiple sclerosis, depression, migraine. PROCEDURES: The patient underwent repair of left orbital floor fracture on the day of admission. CONSULTATIONS: None. BRIEF DESCRIPTION OF HOSPITAL COURSE: The patient sustained an orbital floor fracture on the left side from a fall. Due to development of some degree of enophthalmos, as well as substantial size of orbital floor defect, repair was undertaken. This was performed on the day of admission. Procedure was tolerated well and the patient was transferred to recovery room and subsequently to [facility]surg [facility] without incident. Following the procedure, she had intact vision bilaterally as well as intact extraocular movements bilaterally. Her hospital course was uneventful. She was discharged to home on postoperative day 1. She was provided with a prescription for Keflex as well as bacitracin ophthalmic ointment and Percocet in our office. She has scheduled followup 1 week postoperative. Instructions were given.
== END 2017-02-03 12:13 | disposition home or self-care (01) ==
LOC: C.ACU 05:43 → C.MSN 09:44 → ENRESERV 10:41
PROVIDERS: ADMIT Plastic Surgery; ATTEND Plastic Surgery
DX: S02.32XA Fracture of orbital floor, left side, initial encounter for closed fracture (principal); W19.XXXA Unspecified fall, initial encounter; G35 Multiple sclerosis; K21.9 Gastro-esophageal reflux disease without esophagitis; E55.9 Vitamin D deficiency, unspecified; Z90.49 Acquired absence of other specified parts of digestive tract; Z90.89 Acquired absence of other organs; M54.2 Cervicalgia; F32.9 Major depressive disorder, single episode, unspecified; E66.9 Obesity, unspecified; K44.9 Diaphragmatic hernia without obstruction or gangrene; I95.1 Orthostatic hypotension

== ENCOUNTER → 2017-02-09 | Outpatient (CLI) | payer OTHER ==
[~2017-02-09] MED LIST changes: -IBUP-1050 PO; -OXYC-57 PO
== END | disposition home or self-care (01) ==
LOC: C.LABBC 11:19
PROVIDERS: ATTEND Psychiatry & Neurology Neurology
DX: E55.9 Vitamin D deficiency, unspecified (principal); R53.83 Other fatigue

== ENCOUNTER → 2017-07-23 | Outpatient (CLI) | payer OTHER ==
[2017-07-23 17:38] LABS: BASO % 1.1 %; BASO ABS # 0.07 K/uL (0-0.2); EOS % 1.9 %; EOS ABS # 0.12 K/uL (0-0.5); HEMATOCRIT 38.6 % (37-47); HEMOGLOBIN 13.1 g/dL (12.0-16.0); IG# 0.02 K/uL (0.00-0.02); LYMPH % 14.8 %; LYMPH ABS # 0.95 K/uL (1.2-3.4); MEAN CELL VOLUME 90.2 fL (80-100); MEAN CORPUSCULAR HEMOGLOBIN 30.6 pg (25-34); MEAN CORPUSCULAR HGB CONC 33.9 g/dl (32-36); MEAN PLATELET VOLUME 10.6 fL (7.4-10.4); MONO % 14.3 %; MONO ABS # 0.92 K/uL (0.11-0.59); NEUT % 67.6 %; NEUT ABS # 4.36 K/uL (1.4-6.5); PLATELET COUNT 349 K/uL (130-400); RED CELL DISTRIBUTION WIDTH SD 49.1 fL (36.4-46.3); WHITE BLOOD COUNT 6.44 K/uL (4.8-10.8)
[2017-07-23 18:24] LABS: ALBUMIN 3.8 gm/dl (3.4-5.0); ALT/SGPT 86 U/L (12-78); BLOOD UREA NITROGEN 14 mg/dl (7-18); CALCIUM 8.3 mg/dl (8.5-10.1); CARBON DIOXIDE 26 mmol/L (21-32); CREATININE 0.77 mg/dl (0.60-1.20); GLUCOSE 87 mg/dl (70-99); POTASSIUM 3.8 mmol/L (3.5-5.1); SODIUM 136 mmol/L (136-145)
[2017-07-23 18:27] LABS: ALKALINE PHOSPHATASE 93 U/L (45-117); AST/SGOT 44 U/L (15-37); TOTAL PROTEIN 7.3 gm/dl (6.4-8.2)
== END | disposition home or self-care (01) ==
LOC: C.LABPBG 14:35
PROVIDERS: ATTEND Physician Assistant
DX: G35 Multiple sclerosis (principal)